=== PATIENT | female | born 1990 | race Caucasian/White ===

== ENCOUNTER 2021-04-24 08:39 | Observation (INO) | payer OTHER ==
[2021-04-24 09:28] LABS: #Eosinphils 0.1 10x3/uL (0.0-0.5); #Monocytes 0.8 10x3/uL (0.0-1.1); %Basophils 0.3 % (0.0-2.0); %Eosinophils 0.8 % (0.0-6.0); %Lymphocytes 10.7 % (18.0-47.0); %Monocytes 10.6 % (0.0-10.0); %Neutrophils 76.6 % (40.0-75.0); Hemoglobin 11.3 g/dL (12.0-15.5); Mean Corpuscular HGB CONC 33.9 g/dL (32.0-36.0); Mean Corpuscular Hemoglobin 28.9 pg (27.0-33.0); Mean Corpuscular Volume 85.2 fl (81.6-98.3); Mean Platelet Volume 10.1 fl (7.4-10.4); Platelet Count 214 10x3/uL (150-450); RBC Distribution Width 14.4 % (11.5-14.5); Red Blood Cell (RBC) Count 3.91 10x6/uL (3.90-5.03); White Blood Cell (WBC) Count 7.8 10x3/uL (3.5-10.5)
[2021-04-24 10:07] LABS: ALT (SGPT) 24 U/L (8-55); AST (SGOT) 33 U/L (5-34); Albumin 3.2 g/dL (3.5-5.0); Alkaline Phosphatase 118 U/L (40-110); Anion Gap 14 mmol/L (10-20); BUN (Urea Nitrogen) Less than 4 mg/dL (7.0-18.7); Bilirubin, Total 0.4 mg/dL (0.2-1.2); Calc. Creatinine Clearance 0 mL/min (70-130); Calcium 8.2 mg/dL (7.8-10.44); Carbon Dioxide 16 mmol/L (22-29); Chloride 107 mmol/L (98-107); Globulin 3.1 g/dL (2.4-3.5); Glucose 87 mg/dL (70-105); Potassium 3.5 mmol/L (3.5-5.1); Protein, Total 6.3 g/dL (6.0-8.3); Sodium 133 mmol/L (136-145)
[2021-04-24] MEDS ORDERED: Acetaminophen 500 MG TAB ONE (11:31)
[2021-04-24] MEDS ORDERED: Lorazepam 2 MG/ML VIAL ONE (11:37)
[2021-04-24 11:48] LABS: Bilirubin Neg (Negative); Blood, Urine Negative (Negative); Clarity Slightly Cloudy (Clear); Glucose, Urine (Dipstick) Normal (Negative); Ketone, Urine 50 mg/dL (Negative); Leukocyte 500 (Negative); Nitrite Negative (Negative); Protein, Urine (Dipstick) 15 mg/dl (Neg-Trace); Urobilinogen Normal mg/dL (Less than 2)
[2021-04-24 12:43] LABS: Bacteria/HPF 4+ HPF (None Seen); RBC/HPF 0-3 HPF (0-3)
[2021-04-24 12:49] LABS: Thyroid Stimulating Hormone 0.3553 uIU/mL (0.35-4.94)
[2021-04-24 13:41] LABS: Bilirubin Neg (Negative); Blood, Urine Negative (Negative); Clarity Clear (Clear); Glucose, Urine (Dipstick) Normal (Negative); Ketone, Urine 150 mg/dL (Negative); Leukocyte Negative (Negative); Nitrite Negative (Negative); Protein, Urine (Dipstick) Negative (Neg-Trace); Urobilinogen Normal mg/dL (Less than 2); pH, Urine 6.5 (5.0-9.0)
[2021-04-24 14:09] LABS: SARS-CoV-2 NAA Rapid Test Not Detected (NotDetected)
[2021-04-24 16:04] LABS: Free T4 (Free Thyroxine) 0.87 ng/dL (0.70-1.48)
[2021-04-24 19:08] LABS: RBC/HPF 0-3 HPF (0-3); Squamous Epithelial None Seen HPF (0-3); Transitional Epithelial 0-3 HPF (None Seen); WBC/HPF 0-3 HPF (0-3)
[2021-04-24 19:09] LABS: Bacteria/HPF Rare-Few HPF (None Seen)
[2021-04-24] MEDS: Lactated Ringer's 1,000 ML IV SCH (19:20)
[2021-04-24] MEDS ORDERED: Acetaminophen 500 MG TAB PO PRN (20:29)
[2021-04-24] MEDS ORDERED: hydrALAZINE 20 MG/ML VIAL SLOW IVP PRN (20:29)
[2021-04-24] MEDS ORDERED: Promethazine HCl 25 MG/ML VIAL IM PRN (20:29)
[2021-04-24] MEDS ORDERED: Ondansetron PF 4 MG/2 ML Vial IVP PRN (20:29)
[2021-04-24 20:49] VITALS: BMI 26.4
[2021-04-24 22:14] LABS: Bacteria/HPF Rare-Few HPF (None Seen); RBC/HPF 0-3 HPF (0-3); Squamous Epithelial None Seen HPF (0-3); Transitional Epithelial 0-3 HPF (None Seen); WBC/HPF 0-3 HPF (0-3)
[2021-04-24] MEDS ORDERED: Lidocaine 2% Viscous Solution 10 ML, Aluminum & Magnesium Hydroxide 30 ML SSW SCH (23:30)
[2021-04-25] MEDS: Lactated Ringer's 1,000 ML IV SCH (03:23)
[2021-04-25 08:02] LABS: D-Dimer Test 4.29 mg/L FEU (0.19-0.50); INR-International Normal Ratio 0.9; PTT 30.9 sec (22.0-33.0); Prothrombin Time 10.2 sec (9.5-12.1)
== END 2021-04-25 13:00 | disposition home or self-care (01) ==
LOC: CSHERS 08:39 → INTOOBSV 15:37 → CSHLD 15:37
PROVIDERS: ADMIT Obstetrics & Gynecology; ATTEND Obstetrics & Gynecology
DX: O99.412 Diseases of the circulatory system complicating pregnancy, second trimester (principal); I95.9 Hypotension, unspecified; O99.512 Diseases of the respiratory system complicating pregnancy, second trimester; J10.1 Influenza due to other identified influenza virus with other respiratory manifestations; O30.042 Twin pregnancy, dichorionic/diamniotic, second trimester; O99.891 Other specified diseases and conditions complicating pregnancy; R07.89 Other chest pain; R00.0 Tachycardia, unspecified; O34.219 Maternal care for unspecified type scar from previous cesarean delivery; Z3A.26 26 weeks gestation of pregnancy; Z20.822 Contact with and (suspected) exposure to COVID-19
CPT/HCPCS: 0240U; 36415; 71045; 76810; 76819; 80053; 81003; 81015; 83605; 83880; 84439; 84443; 84484; 85025; 85049; 85300; 85362; 85379; 85384; 85610; 85730; 86850; 86900; 86901; 93005; 93306; 99285; G0378; J2060; J7120

== ENCOUNTER 2021-06-22 12:20 | Inpatient (IN) | payer BC, OTHER, SELFPAY ==
[2021-06-22] MEDS ORDERED: Betamet Acet/Betamet Na Ph 30 MG/5 ML VIAL ONE (12:56)
[2021-06-22] MEDS: Lactated Ringer's 1,000 ML IV SCH ×2 (12:58→14:02)
[2021-06-22 13:00] VITALS: BMI 27.1
[2021-06-22] MEDS ORDERED: Butorphanol Tartrate 1 MG/ML VIAL SLOW IVP PRN (13:08)
[2021-06-22] MEDS ORDERED: Famotidine/PF 20 mg/2ml Vial SLOW IVP PRN (13:08)
[2021-06-22] MEDS ORDERED: Ondansetron PF 4 MG/2 ML Vial IVP PRN ×3 (13:08→20:17)
[2021-06-22] MEDS ORDERED: hydrALAZINE 20 MG/ML VIAL SLOW IVP PRN ×2 (13:08→20:17)
[2021-06-22] MEDS ORDERED: Promethazine HCl 25 MG/ML VIAL IM PRN ×2 (13:08→18:23)
[2021-06-22] MEDS ORDERED: Bicitra 30 ML UDCUP PO PRN (13:08)
[2021-06-22] MEDS ORDERED: ceFAZolin 2 GM/Dextrose 50 ML 2 GM in Premix Bag 1 BAG IVPB SCH (13:15)
[2021-06-22] MEDS ORDERED: Betamet Acet/Betamet Na Ph 30 MG/5 ML VIAL IM SCH (13:15)
[2021-06-22] MEDS ORDERED: PHENYLEPHRINE-NS 100 MCG/ML 10 ML SYRINGE ONE (13:36)
[2021-06-22] MEDS ORDERED: Ketorolac Tromethamine 30 MG/ML VIAL ONE (13:36)
[2021-06-22] MEDS ORDERED: Phenylephrine 10 MG/ML VIAL ONE (13:36)
[2021-06-22] MEDS ORDERED: Morphine PF 10 MG/10 ML VIAL ONE (13:36)
[2021-06-22] MEDS ORDERED: Dexamethasone 4 mg/ml Vial ONE (13:36)
[2021-06-22] MEDS ORDERED: Oxytocin 10 UNITS/ML VIAL ONE (13:36)
[2021-06-22] MEDS ORDERED: Ondansetron PF 4 MG/2 ML Vial ONE ×2 (13:36→15:19)
[2021-06-22 13:55] LABS: Hemoglobin 11.7 g/dL (12.0-15.5); Mean Corpuscular HGB CONC 33.1 g/dL (32.0-36.0); Mean Corpuscular Hemoglobin 27.9 pg (27.0-33.0); Mean Platelet Volume 11.2 fl (7.4-10.4); Platelet Count 209 10x3/uL (150-450); RBC Distribution Width 14.9 % (11.5-14.5)
[2021-06-22 14:31] LABS: Syphilis Antibody Nonreactive (Nonreactive); Syphilis Antibody Index 0.11 S/CO (<1.00 Non-Reactive)
[2021-06-22 14:32] LABS: Hep B Surf Ag Non-Reactive S/CO (NonReactive)
[2021-06-22 14:35] LABS: HBSAg Index 0.18 S/CO (0-0.99)
[2021-06-22] MEDS ORDERED: diphenhydrAMINE 50 MG/ML VIAL IVP PRN (18:23)
[2021-06-22] MEDS ORDERED: Promethazine HCl 25 MG SUPP PR PRN (18:23)
[2021-06-22] MEDS ORDERED: Ondansetron HCl/PF 4 MG/2 ML Vial IVP PRN (18:23)
[2021-06-22] MEDS ORDERED: Naloxone HCl 0.4 mg/ml Vial IVP PRN ×2 (18:23)
[2021-06-22] MEDS ORDERED: Naloxone HCl 0.4 mg/ml Vial IV PRN (18:23)
[2021-06-22] MEDS ORDERED: L&D-Morphine 4 MG/ML VIAL SLOW IVP PRN (18:23)
[2021-06-22] MEDS ORDERED: Meperidine HCl/PF 25 MG/ML VIAL SLOW IVP PRN (18:23)
[2021-06-22] MEDS ORDERED: Hydrocerin (Eucerin) Cream 120 gm Jar TOP PRN (18:23)
[2021-06-22] MEDS ORDERED: Fentanyl 100 MCG/2 ML VIAL SLOW IVP PRN (18:23)
[2021-06-22] MEDS ORDERED: Ketorolac Tromethamine 30 MG/ML VIAL IVP SCH (18:30)
[2021-06-22] MEDS ORDERED: Communication Order-Pharmacy FS SCH (18:30)
[2021-06-22 18:43] LABS: HIV (1/2) Antibody/Antigen Non-Reactive (NonReactive); HIV 1/2 INDEX 0.09 S/CO (<1.00)
[2021-06-22] MEDS ORDERED: Fentanyl 250 MCG/5 ML VIAL ONE (19:01)
[2021-06-22] MEDS ORDERED: Boostrix 0.5 ML (Tdap) VIAL IM ONE (20:17)
[2021-06-22] MEDS ORDERED: Bisacodyl 10 MG SUPP PR PRN (20:17)
[2021-06-22] MEDS ORDERED: Lanolin Ointment 7 GM TUBE TOP PRN (20:17)
[2021-06-22] MEDS ORDERED: diphenhydrAMINE 25 MG CAP PO PRN (20:17)
[2021-06-22] MEDS: Ferrous Sulfate 325 MG TAB PO SCH (20:55)
[2021-06-22] MEDS: Docusate 100 MG CAP PO SCH (20:55)
[2021-06-23] MEDS: Ketorolac Tromethamine 30 MG/ML VIAL IVP PRN ×2 (01:13→08:43)
[2021-06-23 04:44] LABS: Hemoglobin 10.6 g/dL (12.0-15.5); Mean Corpuscular HGB CONC 32.5 g/dL (32.0-36.0); Mean Corpuscular Hemoglobin 27.6 pg (27.0-33.0); Mean Corpuscular Volume 84.9 fl (81.6-98.3); Platelet Count 183 10x3/uL (150-450); RBC Distribution Width 14.5 % (11.5-14.5); Red Blood Cell (RBC) Count 3.84 10x6/uL (3.90-5.03); White Blood Cell (WBC) Count 11.4 10x3/uL (3.5-10.5)
[2021-06-23] MEDS: Ferrous Sulfate 325 MG TAB PO SCH ×2 (08:21→21:07)
[2021-06-23] MEDS: Prenatal Vitamin 1 TAB PO SCH (08:42)
[2021-06-23] MEDS: Docusate 100 MG CAP PO SCH ×2 (08:42→21:06)
[2021-06-23] MEDS: HYDROcodone/Acetaminophen 5/325 mg Tablet PO PRN ×4 (08:42→22:51)
[2021-06-23] MEDS: Simethicone Chewable 80 MG TAB PO PRN ×2 (08:42→18:39)
[2021-06-23] MEDS: Ibuprofen 800 MG TAB PO SCH (21:07)
[2021-06-23] MEDS: Amoxicillin/Potassium Clav 875 MG TAB PO SCH (21:07)
[2021-06-24] MEDS: Ibuprofen 800 MG TAB PO SCH ×2 (05:08→15:46)
[2021-06-24] MEDS: Ferrous Sulfate 325 MG TAB PO SCH ×2 (07:41→22:41)
[2021-06-24] MEDS: HYDROcodone/Acetaminophen 5/325 mg Tablet PO PRN ×4 (08:16→21:35)
[2021-06-24] MEDS: Prenatal Vitamin 1 TAB PO SCH (08:16)
[2021-06-24] MEDS: Amoxicillin/Potassium Clav 875 MG TAB PO SCH ×2 (08:16→21:35)
[2021-06-24] MEDS: Docusate 100 MG CAP PO SCH ×2 (08:16→21:34)
[2021-06-25] MEDS: Ibuprofen 800 MG TAB PO SCH ×2 (00:55→08:09)
[2021-06-25] MEDS: HYDROcodone/Acetaminophen 5/325 mg Tablet PO PRN ×2 (01:35→08:10)
[2021-06-25] MEDS: Ferrous Sulfate 325 MG TAB PO SCH (07:47)
[2021-06-25] MEDS: Prenatal Vitamin 1 TAB PO SCH (08:09)
[2021-06-25] MEDS: Amoxicillin/Potassium Clav 875 MG TAB PO SCH (08:09)
[2021-06-25] MEDS: Docusate 100 MG CAP PO SCH (08:09)
[2021-06-25 08:16] VITALS: BP 115/73; TEMP 98
== END 2021-06-25 12:15 | disposition home or self-care (01) | DRG 788 ==
LOC: CSHLD/OP 12:20 → CSHLD 13:45 → CSHPP 20:06
PROVIDERS: ADMIT Obstetrics & Gynecology; ATTEND Obstetrics & Gynecology
PROC: 10D00Z1 Extraction of Products of Conception, Low, Open Approach (ICD-10-PCS; principal; 2021-06-22)
DX: O60.14X1 Preterm labor third trimester with preterm delivery third trimester, fetus 1 (principal); O30.043 Twin pregnancy, dichorionic/diamniotic, third trimester; O60.14X2 Preterm labor third trimester with preterm delivery third trimester, fetus 2; Z3A.34 34 weeks gestation of pregnancy; Z37.2 Twins, both liveborn; O34.211 Maternal care for low transverse scar from previous cesarean delivery; O32.1XX2 Maternal care for breech presentation, fetus 2; J01.90 Acute sinusitis, unspecified; O99.52 Diseases of the respiratory system complicating childbirth
CPT/HCPCS: 36415; 51702; 85027; 86780; 86850; 86900; 86901; 87340; 87389; 99285; J0690; J0702; J1100; J1885; J2274; J2310; J2370; J2405; J2590; J3010; J7120; S0028

== ENCOUNTER 2025-02-16 07:50 | Outpatient (CLI) | payer BC, OTHER | END 2025-02-16 07:51 | disposition home or self-care (01) | LOC: CSHCT 07:50 | PROVIDERS: ATTEND Obstetrics & Gynecology Reproductive Endocrinology | DX: N83.291 Other ovarian cyst, right side (principal) | CPT/HCPCS: 72194 ==